=== PATIENT | male | born 1975 | race Caucasian/White ===

== ENCOUNTER 2019-01-21 19:02 | Emergency (ER) | payer BC ==
[~2019-01-21] VITALS: Ht 180.3 cm; Wt 129.6 kg
[~2019-01-21 19:02] MED LIST: LIDOcaine 1% 30ml preserv. free vial ONE; LIDOcaine 1% W/epiNEPHrine 1:100,000 20ml vial ONE
[2019-01-21 19:06] VITALS: BP 169/89
[2019-01-21] MEDS ORDERED: TETanus/Pertussis (Acell)/Diphther VAC/PF (Tdap-Adult) 0.5ml syringe IMVAC ONE (19:35)
--- NOTE | 2019-01-21 19:38 | NUR ---
pt became diaphoretic, and lightheaded after injection of lido with epi. pt doesnt like needles. 02 at 2 l/min nc applied, 02 sat 96%. hr 82. resting quietly
--- NOTE | 2019-01-21 19:57 | NUR ---
pt talkative, skin pink, states feeling much better
== END 2019-01-21 21:12 | disposition home or self-care (01) ==
LOC: ER 19:02
DX: S61.211A Laceration without foreign body of left index finger without damage to nail, initial encounter (principal); W26.0XXA Contact with knife, initial encounter; Y93.89 Activity, other specified; Y92.89 Other specified places as the place of occurrence of the external cause; Y99.8 Other external cause status
CPT/HCPCS: 12001; 90471; 90715; 99283; J2001